=== PATIENT | female | born 1960 | race Caucasian/White ===

== ENCOUNTER → 2017-04-02 17:24 | Outpatient (CLI) | payer MEDICARE, BC ==
[2014-09-13 12:39] VITALS: BMI 22.9
[~2017-04-02 17:24] MED LIST: CARAFATE1 G PO; CYCLOBENZAPRINE10 MG PO; ESTRACE1 MG PO; FIORICET/ESGIC1 TAB PO; GABAPENTIN100 MG PO; MOBIC7.5 MG PO; PEPCID20 MG PO; PROTONIX40 MG PO; ULTRAM50 MG PO
== END | disposition home or self-care (01) ==
LOC: D.MAMMO 14:15
DX: Z12.31 Encounter for screening mammogram for malignant neoplasm of breast (principal)

== ENCOUNTER → 2018-04-11 12:55 | Outpatient (CLI) | payer MEDICARE, BC ==
[2014-09-13 12:39] VITALS: BMI 22.9
== END | disposition home or self-care (01) ==
LOC: D.US 12:55
DX: R10.2 Pelvic and perineal pain (principal)

== ENCOUNTER → 2018-04-29 11:15 | Outpatient (CLI) | payer MEDICARE, BC ==
[2014-09-13 12:39] VITALS: BMI 22.9
== END | disposition home or self-care (01) ==
LOC: D.CT 11:00
DX: R10.9 Unspecified abdominal pain (principal)

== ENCOUNTER → 2018-07-18 17:09 | Outpatient (CLI) | payer MEDICARE, MEDICAID ==
[2014-09-13 12:39] VITALS: BMI 22.9
== END | disposition home or self-care (01) ==
LOC: D.CT 17:09
DX: R06.02 Shortness of breath (principal)

== ENCOUNTER → 2018-07-18 18:52 | Outpatient (CLI) | payer MEDICARE, MEDICAID ==
[2014-09-13 12:39] VITALS: BMI 22.9
== END | disposition home or self-care (01) ==
LOC: D.LABREF 18:52
DX: R06.00 Dyspnea, unspecified (principal)

== ENCOUNTER → 2018-07-21 16:04 | Outpatient (CLI) | payer MEDICARE, MEDICAID ==
[2014-09-13 12:39] VITALS: BMI 22.9
[2018-07-23 11:17] LABS: HEPATITIS C ANTIBODY <0.1 (0.0-0.9)
== END | disposition home or self-care (01) ==
LOC: D.LAB 16:04
PROVIDERS: Internal Medicine Gastroenterology
DX: K76.0 Fatty (change of) liver, not elsewhere classified (principal)

== ENCOUNTER → 2018-08-20 19:33 | Outpatient (CLI) | payer MEDICARE, MEDICAID ==
[2014-09-13 12:39] VITALS: BMI 22.9
== END | disposition home or self-care (01) ==
LOC: D.MAMMO 11:15
DX: Z12.31 Encounter for screening mammogram for malignant neoplasm of breast (principal)

== ENCOUNTER → 2018-11-05 16:51 | Outpatient (CLI) | payer MEDICARE, MEDICAID ==
[2014-09-13 12:39] VITALS: BMI 22.9
== END | disposition home or self-care (01) ==
LOC: D.US 16:51
DX: M79.661 Pain in right lower leg (principal)

== ENCOUNTER → 2019-07-21 07:20 | Outpatient (CLI) | payer MEDICARE, MEDICAID ==
[2014-09-13 12:39] VITALS: BMI 22.9
--- NOTE | 2019-07-21 08:44 | NUR ---
TO FOR LT SHOULDER ARTHROGRAM WAS AT 0822AM W DR MOHAN ULLOA
== END | disposition home or self-care (01) ==
LOC: D.RAD 07-10 08:00 → D.MRI 07-17 09:00 → D.RAD 07-17 10:00 → D.MRI 07-17 11:00 → D.RAD 07:20
PROVIDERS: ATTEND Family Medicine
DX: M25.512 Pain in left shoulder (principal); M25.532 Pain in left wrist

== ENCOUNTER 2019-08-26 12:30 | Outpatient (CLI) | payer MEDICARE, MEDICAID ==
[2014-09-13 12:39] VITALS: BMI 22.9
== END 2019-08-26 13:00 | disposition home or self-care (01) ==
LOC: D.MAMMO 12:30
PROVIDERS: ATTEND Family Medicine
DX: Z12.31 Encounter for screening mammogram for malignant neoplasm of breast (principal)

== ENCOUNTER → 2021-04-11 13:34 | Outpatient (CLI) | payer MEDICARE, MEDICAID ==
[2014-09-13 12:39] VITALS: BMI 22.9
== END | disposition home or self-care (01) ==
LOC: D.CT 13:34
PROVIDERS: ATTEND Internal Medicine Gastroenterology
DX: R10.12 Left upper quadrant pain (principal); R10.13 Epigastric pain